=== PATIENT | female | born 1950 | race Caucasian/White ===

== ENCOUNTER 2020-03-15 18:54 | Observation (INO) ==
[2020-03-15 19:55] LABS: ABG Base Excess 0.7 MMOL/L (-2.5-2.5); ABG Oxygen Saturation 99.5 % (95-100); ABG PCO2 55.3 MM HG (35-48); ABG PH 7.313 (7.35-7.45); ABG TCO2 25.1 MMOL/L (23-27); Allen Test Positive
[2020-03-15 20:07] LABS: Basophils % 0.3 % (0.0-0.8); Eosinophils # 0.1 10*3/uL (0.0-0.87); Eosinophils % 1.8 % (0.00-10.9); Hematocrit 38.5 VOL% (35.7-47.0); Hemoglobin 12.3 GM/DL (12.0-16.0); Immature Granulocytes % 0.6 %; Immature Granulocytes Absolute 0.04 #; Lymphocytes # 0.9 10*3/uL (1.4-4.0); Lymphocytes % 12.9 % (21.3-54.2); Mean Corpuscular HGB Conc 31.9 GM/DL (32-36); Mean Corpuscular Volume 95.5 FL (87-102); Mean Platelet Volume 10.4 FL (9.6-12.0); Monocytes % 7.8 % (1.7-12.7); Neutrophils % 76.6 % (38.7-73.9); Platelet Count 150 T/CUMM (130-400); Red Blood Count 4.03 MC/CUMM (3.8-5.5); Red Cell Distribution Width 12.9 % (9.3-17.3); White Blood Count 7.1 T/CUMM (4-12)
[2020-03-15 20:27] LABS: PT Patient Result 10.7 SECS (9.8-11.9)
[2020-03-15 20:29] LABS: Albumin 3.7 G/DL (3.4-5.0); Bilirubin,Total 1.4 MG/DL (0.2-1.0); Calcium 8.6 MG/DL (8.5-10.1); Osmolality,Calculated 281.5 MOS/KG (273-304)
[2020-03-15 20:30] LABS: Barbiturates Screen,Urine Negative (Negative); Benzodiazepines Screen,Urine Positive (Negative); Cannabinoid Screen,Urine Negative (Negative); Opiate Screen,Urine Negative (Negative); Phencyclidine Screen,Urine Negative (Negative)
[2020-03-15] MEDS ORDERED: SODIUM CHLORIDE 0.9% 1,000 ML IV STA (21:03)
[2020-03-15 21:19] LABS: Apearance,Urine Slightly Hazy (Clear); Bacteria,Urine Occasional /HPF (Few); Bilirubin,Urine Negative (Negative); Blood, Urine Moderate mg/dL (Negative); Glucose,Urine (UA) Negative (Negative); Hyaline Casts,Urine 15 /LPF (0-3); Ketones,Urine 5 mg/dL (Negative); Mucus,Urine Occasional /LPF (Occasional); Nitrite,Urine Positive (Negative); Protein,Urine 30 MG/DL; RBC,Urine 1 /HPF (0-4); Squamous Epithelial Cell,Urine Occasional /HPF (0-10); Urine Color Yellow (Yellow); Urine Specific Gravity 1.012 (1.001-1.035); WBC,Urine 27 /HPF (0-6)
[2020-03-15] MEDS ORDERED: DOCUSATE SODIUM 100 MG CAPSULE PO PRN (21:52)
[2020-03-15] MEDS ORDERED: ONDANSETRON 4 MG/2 ML VIAL IV PRN (21:52)
[2020-03-15] MEDS ORDERED: ALUMINUM/MAGNES/SIMETH MAX STR 30 ML UDCUP PO PRN (21:52)
[2020-03-15] MEDS ORDERED: cefTRIAXone 1,000 MG in SODIUM CHLORIDE 0.9% 100 ML IV STA (21:54)
[2020-03-15] MEDS ORDERED: cefTRIAXone 2,000 MG in SYRINGE 1 EACH IV SCH (22:00)
[2020-03-15 22:18] LABS: Hepatitis B Core IgM Quant 0.09 Index; Hepatitis B Surface Ag Quant 0.22 Index; Hepatitis B Surface Ag Result Negative (Negative); Hepatitis C Virus Ab Quant 0.08 Index; Hepatitis C Virus Ab Result Negative (Negative)
[2020-03-15] MEDS ORDERED: SODIUM CHLORIDE 0.9% 100 ML IV ONE (22:20)
[2020-03-15] MEDS: SODIUM CHLORIDE 0.9% 1,000 ML IV SCH (22:38)
[2020-03-16 05:47] LABS: Basophils % 0.4 % (0.0-0.8); Eosinophils # 0.2 10*3/uL (0.0-0.87); Eosinophils % 3.8 % (0.00-10.9); Hematocrit 33.5 VOL% (35.7-47.0); Hemoglobin 10.8 GM/DL (12.0-16.0); Immature Granulocytes % 0.4 %; Immature Granulocytes Absolute 0.02 #; Lymphocytes # 1.1 10*3/uL (1.4-4.0); Lymphocytes % 23.8 % (21.3-54.2); Mean Corpuscular HGB Conc 32.2 GM/DL (32-36); Mean Corpuscular Volume 94.1 FL (87-102); Mean Platelet Volume 10.6 FL (9.6-12.0); Neutrophils % 62.6 % (38.7-73.9); Platelet Count 128 T/CUMM (130-400); Red Blood Count 3.56 MC/CUMM (3.8-5.5); Red Cell Distribution Width 12.9 % (9.3-17.3); White Blood Count 4.8 T/CUMM (4-12)
[2020-03-16 06:16] LABS: Albumin 2.7 G/DL (3.4-5.0); Bilirubin,Total 0.6 MG/DL (0.2-1.0); Calcium 8.4 MG/DL (8.5-10.1); Osmolality,Calculated 285.8 MOS/KG (273-304); Total Protein 5.7 G/DL (6.4-8.3)
[2020-03-16] MEDS: SODIUM CHLORIDE 0.9% 1,000 ML IV SCH (10:00)
[2020-03-16 11:07] LABS: Risk Ratio 4.03; VLDL CHOLESTEROL 32.2 MG/DL
[2020-03-16 12:05] VITALS: BP 142/76
== END 2020-03-16 14:12 | disposition home health service (06) ==
LOC: EDUNIT# → EDBD → N.EDINP 18:54 → N.ED 18:54 → N.EDINP 22:48 → N.5E 23:08
PROVIDERS: ADMIT Family Medicine; ATTEND Family Medicine

== ENCOUNTER 2020-03-27 20:07 | Inpatient (IN) ==
[2020-03-27] MEDS ORDERED: SODIUM CHLORIDE 0.9% 1,000 ML IV STA ×2 (20:56→22:30)
[2020-03-27 21:13] LABS: Basophils # 0.1 10*3/uL (0.0-0.2); Basophils % 0.2 % (0.0-0.8); Eosinophils % 0.1 % (0.00-10.9); Hematocrit 41.2 VOL% (35.7-47.0); Hemoglobin 13.1 GM/DL (12.0-16.0); Immature Granulocytes % 1.1 %; Immature Granulocytes Absolute 0.27 #; Lymphocytes % 3.9 % (21.3-54.2); Mean Corpuscular HGB Conc 31.8 GM/DL (32-36); Mean Corpuscular Volume 95.2 FL (87-102); Mean Platelet Volume 11.1 FL (9.6-12.0); Monocytes % 7.7 % (1.7-12.7); Platelet Count 225 T/CUMM (130-400); Red Blood Count 4.33 MC/CUMM (3.8-5.5); Red Cell Distribution Width 13.2 % (9.3-17.3); White Blood Count 25.1 T/CUMM (4-12)
[2020-03-27 21:33] LABS: Albumin 3.3 G/DL (3.4-5.0); Barbiturates Screen,Urine Negative (Negative); Benzodiazepines Screen,Urine Positive (Negative); Bilirubin,Total 0.7 MG/DL (0.2-1.0); Calcium 9.5 MG/DL (8.5-10.1); Cannabinoid Screen,Urine Negative (Negative); Opiate Screen,Urine Negative (Negative); Phencyclidine Screen,Urine Negative (Negative); Total Protein 7.2 G/DL (6.4-8.3)
[2020-03-27 21:36] LABS: Bilirubin,Urine Negative (Negative); Blood, Urine Small mg/dL (Negative); Glucose,Urine (UA) Negative (Negative); Ketones,Urine 5 mg/dL (Negative); Mucus,Urine Occasional /LPF (Occasional); Nitrite,Urine Negative (Negative); Protein,Urine 100 MG/DL; Squamous Epithelial Cell,Urine Occasional /HPF (0-10); Urine Appearance CLOUDY (Clear); Urine Color Amber (Yellow); Urine Specific Gravity 1.019 (1.001-1.035); WBC,Urine 2 /HPF (0-6)
[2020-03-27 21:38] LABS: Band Neutrophils 14 % (0-10); Lymphocytes 3 % (20-55); Platelet Estimate Normal; Segmented Neutrophils 78 % (50-85); Total Cells Counted 100
[2020-03-27] MEDS ORDERED: PIPERACILLIN/TAZOBACTAM 3,375 MG in SODIUM CHLORIDE 0.9% 100 ML IV STA (22:31)
[2020-03-27] MEDS ORDERED: VANCOMYCIN INJ 1,000 MG in SODIUM CHLORIDE 0.9% 250 ML IV STA (22:31)
[2020-03-28] MEDS ORDERED: LEVOFLOXACIN INJ 750 MG in PREMIX 1 EACH IV ONE (00:30)
[2020-03-28] MEDS ORDERED: ALBUTEROL 2.5 MG/3 ML NEB RESP TX PRN (00:33)
[2020-03-28] MEDS ORDERED: ACETAMINOPHEN 325 MG TABLET PO PRN (00:35)
[2020-03-28] MEDS ORDERED: DOCUSATE SODIUM 100 MG CAPSULE PO PRN (00:35)
[2020-03-28] MEDS ORDERED: ONDANSETRON 4 MG/2 ML VIAL IV PRN (00:35)
[2020-03-28] MEDS: ALBUTEROL/IPRATROPIUM 3 ML NEB RESP TX SCH ×4 (01:00→19:00)
[2020-03-28] MEDS: SODIUM CHLORIDE 0.9% 1,000 ML IV SCH ×3 (01:55→17:18)
[2020-03-28 02:33] LABS: Basophils % 0.2 % (0.0-0.8); Hematocrit 35.7 VOL% (35.7-47.0); Hemoglobin 11.2 GM/DL (12.0-16.0); Immature Granulocytes % 0.8 %; Immature Granulocytes Absolute 0.14 #; Lymphocytes # 0.8 10*3/uL (1.4-4.0); Lymphocytes % 4.4 % (21.3-54.2); Mean Corpuscular HGB Conc 31.4 GM/DL (32-36); Mean Corpuscular Volume 97.8 FL (87-102); Mean Platelet Volume 10.7 FL (9.6-12.0); Monocytes % 4.7 % (1.7-12.7); Neutrophils % 89.9 % (38.7-73.9); Platelet Count 152 T/CUMM (130-400); Red Blood Count 3.65 MC/CUMM (3.8-5.5); Red Cell Distribution Width 13.3 % (9.3-17.3); White Blood Count 18.4 T/CUMM (4-12)
[2020-03-28 03:24] LABS: Band Neutrophils 3 % (0-10); Lymphocytes 6 % (20-55); Platelet Estimate Normal; Segmented Neutrophils 87 % (50-85); Total Cells Counted 100
[2020-03-28 03:25] LABS: Hypochromasia Slight
[2020-03-28 05:55] LABS: Albumin 2.5 G/DL (3.4-5.0); Bilirubin,Total 1.2 MG/DL (0.2-1.0); Calcium 8.4 MG/DL (8.5-10.1); Osmolality,Calculated 290.4 MOS/KG (273-304); Total Protein 5.4 G/DL (6.4-8.3)
[2020-03-28] MEDS: PIPERACILLIN/TAZOBACTAM 3,375 MG in SODIUM CHLORIDE 0.9% 100 ML IV SCH ×2 (09:38→21:41)
[2020-03-28] MEDS: MIRTAZAPINE 30 MG TABLET PO SCH (21:41)
[2020-03-29] MEDS: ALBUTEROL/IPRATROPIUM 3 ML NEB RESP TX SCH ×4 (00:50→19:24)
[2020-03-29] MEDS ORDERED: SODIUM CHLORIDE 0.9% 250 ML IV ONE (05:40)
[2020-03-29 06:04] LABS: Basophils % 0.3 % (0.0-0.8); Eosinophils # 0.1 10*3/uL (0.0-0.87); Eosinophils % 0.4 % (0.00-10.9); Hemoglobin 10.5 GM/DL (12.0-16.0); Immature Granulocytes % 0.6 %; Immature Granulocytes Absolute 0.07 #; Lymphocytes # 0.6 10*3/uL (1.4-4.0); Lymphocytes % 5.4 % (21.3-54.2); Mean Corpuscular HGB Conc 31.8 GM/DL (32-36); Mean Corpuscular Volume 96.5 FL (87-102); Monocytes % 6.6 % (1.7-12.7); Neutrophils % 86.7 % (38.7-73.9); Platelet Count 144 T/CUMM (130-400); Red Blood Count 3.42 MC/CUMM (3.8-5.5); Red Cell Distribution Width 13.9 % (9.3-17.3); White Blood Count 11.7 T/CUMM (4-12)
[2020-03-29 06:30] LABS: Albumin 2.1 G/DL (3.4-5.0); Anisocytosis 1+; Band Neutrophils 42 % (0-10); Bilirubin,Total 1.4 MG/DL (0.2-1.0); Calcium 8.6 MG/DL (8.5-10.1); Eosinophils 1 % (0-10); Lymphocytes 6 % (20-55); Nucleated Red Blood Cells 1 (0-5); Osmolality,Calculated 286.3 MOS/KG (273-304); Platelet Estimate Adequate; Segmented Neutrophils 47 % (50-85); Smudge Cells Few; Total Cells Counted 100; Total Protein 5.2 G/DL (6.4-8.3)
[2020-03-29] MEDS ORDERED: MONTELUKAST 10 MG TABLET PO SCH (09:00)
[2020-03-29] MEDS: SERTRALINE 50 MG TABLET PO SCH (11:25)
[2020-03-29] MEDS: METOPROLOL SUCCINATE XL 50 MG TABLET PO SCH (11:26)
[2020-03-29] MEDS: PIPERACILLIN/TAZOBACTAM 3,375 MG in SODIUM CHLORIDE 0.9% 100 ML IV SCH ×2 (11:26→16:51)
[2020-03-29] MEDS: SODIUM CHLORIDE 0.9% 1,000 ML IV SCH ×3 (18:09→20:30)
[2020-03-29] MEDS: MIRTAZAPINE 30 MG TABLET PO SCH (20:31)
[2020-03-29] MEDS: amLODIPine 5 MG TABLET PO SCH (20:31)
[2020-03-30] MEDS: ALBUTEROL/IPRATROPIUM 3 ML NEB RESP TX SCH ×4 (00:14→19:15)
[2020-03-30] MEDS ORDERED: LEVOFLOXACIN INJ 500 MG in PREMIX 1 EACH IV SCH (01:00)
[2020-03-30] MEDS: PIPERACILLIN/TAZOBACTAM 3,375 MG in SODIUM CHLORIDE 0.9% 100 ML IV SCH ×2 (02:00→09:08)
[2020-03-30 06:51] LABS: Basophils # 0.1 10*3/uL (0.0-0.2); Basophils % 0.5 % (0.0-0.8); Eosinophils # 0.4 10*3/uL (0.0-0.87); Eosinophils % 3.2 % (0.00-10.9); Hematocrit 33.4 VOL% (35.7-47.0); Hemoglobin 10.9 GM/DL (12.0-16.0); Immature Granulocytes Absolute 0.13 #; Lymphocytes % 7.8 % (21.3-54.2); Mean Corpuscular HGB Conc 32.6 GM/DL (32-36); Mean Corpuscular Volume 93.3 FL (87-102); Mean Platelet Volume 10.9 FL (9.6-12.0); Monocytes % 5.3 % (1.7-12.7); Neutrophils % 82.2 % (38.7-73.9); Platelet Count 163 T/CUMM (130-400); Red Blood Count 3.58 MC/CUMM (3.8-5.5); Red Cell Distribution Width 13.6 % (9.3-17.3)
[2020-03-30 08:07] LABS: Calcium 8.4 MG/DL (8.5-10.1); Osmolality,Calculated 281.1 MOS/KG (273-304)
[2020-03-30] MEDS ORDERED: POTASSIUM CHLORIDE 20 MEQ TABLET PO ONE (08:12)
[2020-03-30] MEDS ORDERED: MAGNESIUM OXIDE 400 MG TABLET PO ONE (08:12)
[2020-03-30 08:51] LABS: Band Neutrophils 4 % (0-10); Lymphocytes 4 % (20-55); Ovalocytes Few; Platelet Estimate Adequate; Polychromasia Slight; Schistocytes Few; Segmented Neutrophils 92 % (50-85); Total Cells Counted 100
[2020-03-30] MEDS: SERTRALINE 50 MG TABLET PO SCH (09:08)
[2020-03-30] MEDS: METOPROLOL SUCCINATE XL 50 MG TABLET PO SCH (09:08)
[2020-03-30] MEDS: SODIUM CHLORIDE 0.9% 1,000 ML IV SCH (10:23)
[2020-03-30] MEDS: MIRTAZAPINE 30 MG TABLET PO SCH (20:43)
[2020-03-30] MEDS: amLODIPine 5 MG TABLET PO SCH (20:43)
[2020-03-30] MEDS: MONTELUKAST 10 MG TABLET PO SCH (20:44)
[2020-03-31] MEDS: ALBUTEROL/IPRATROPIUM 3 ML NEB RESP TX SCH ×4 (00:37→19:45)
[2020-03-31 06:03] LABS: Basophils # 0.1 10*3/uL (0.0-0.2); Basophils % 0.7 % (0.0-0.8); Eosinophils # 0.3 10*3/uL (0.0-0.87); Eosinophils % 3.7 % (0.00-10.9); Hematocrit 33.3 VOL% (35.7-47.0); Hemoglobin 10.6 GM/DL (12.0-16.0); Immature Granulocytes % 2.3 %; Lymphocytes # 1.1 10*3/uL (1.4-4.0); Lymphocytes % 12.2 % (21.3-54.2); Mean Corpuscular HGB Conc 31.8 GM/DL (32-36); Mean Corpuscular Volume 94.9 FL (87-102); Mean Platelet Volume 10.5 FL (9.6-12.0); Monocytes % 7.8 % (1.7-12.7); Neutrophils % 73.3 % (38.7-73.9); Platelet Count 173 T/CUMM (130-400); Red Blood Count 3.51 MC/CUMM (3.8-5.5); Red Cell Distribution Width 13.7 % (9.3-17.3); White Blood Count 8.6 T/CUMM (4-12)
[2020-03-31 06:34] LABS: Calcium 8.2 MG/DL (8.5-10.1); Osmolality,Calculated 286.6 MOS/KG (273-304)
[2020-03-31 06:37] LABS: Albumin 2.2 G/DL (3.4-5.0); Bilirubin,Direct 0.13 MG/DL (0.0-0.20); Bilirubin,Total 1.1 MG/DL (0.2-1.0); Total Protein 5.2 G/DL (6.4-8.3)
[2020-03-31] MEDS: SERTRALINE 50 MG TABLET PO SCH ×2 (08:21→08:23)
[2020-03-31] MEDS: METOPROLOL SUCCINATE XL 50 MG TABLET PO SCH (08:21)
[2020-03-31] MEDS: SODIUM CHLORIDE 0.9% 1,000 ML IV SCH ×2 (08:21→13:45)
[2020-03-31] MEDS ORDERED: POTASSIUM CHLORIDE 20 MEQ TABLET PO ONE (09:33)
[2020-03-31 11:25] LABS: Eosinophils 2 % (0-10); Lymphocytes 7 % (20-55); Metamyelocytes 1 %; Platelet Estimate Adequate; Polychromasia Slight; Segmented Neutrophils 86 % (50-85); Total Cells Counted 100
[2020-03-31] MEDS: amLODIPine 5 MG TABLET PO SCH (20:26)
[2020-03-31] MEDS: MIRTAZAPINE 30 MG TABLET PO SCH (20:26)
[2020-03-31] MEDS: MONTELUKAST 10 MG TABLET PO SCH (20:27)
[2020-04-01] MEDS: ALBUTEROL/IPRATROPIUM 3 ML NEB RESP TX SCH ×3 (00:55→13:54)
[2020-04-01 05:42] LABS: Calcium 8.2 MG/DL (8.5-10.1)
[2020-04-01] MEDS: METOPROLOL SUCCINATE XL 50 MG TABLET PO SCH (08:42)
[2020-04-01] MEDS: SERTRALINE 50 MG TABLET PO SCH (08:43)
[2020-04-01] MEDS ORDERED: LEVOFLOXACIN 500 MG TABLET PO SCH (09:00)
[2020-04-01] MEDS ORDERED: DILTIAZEM 30 MG TABLET PO SCH (12:00)
[2020-04-01 12:26] VITALS: BP 135/70
[2020-04-01] MEDS ORDERED: MAGNESIUM CHLORIDE 64 MG TABLET PO SCH (21:00)
== END 2020-04-01 15:21 | disposition home health service (06) | DRG 871 ==
LOC: N.ED 20:07 → SUATTDRO 23:48 → N.EDINP 23:48 → N.5E 03-28 01:15
PROVIDERS: ADMIT Internal Medicine; ATTEND Internal Medicine

== ENCOUNTER 2020-04-11 23:52 | Observation (INO) ==
[2020-04-12] MEDS ORDERED: SODIUM CHLORIDE 0.9% 2,000 ML IV STA (00:15)
[2020-04-12 01:00] LABS: Basophils % 0.2 % (0.0-0.8); Eosinophils # 0.2 10*3/uL (0.0-0.87); Hematocrit 30.3 VOL% (35.7-47.0); Hemoglobin 9.4 GM/DL (12.0-16.0); Immature Granulocytes % 0.4 %; Immature Granulocytes Absolute 0.04 #; Lymphocytes # 0.6 10*3/uL (1.4-4.0); Mean Corpuscular Volume 98.1 FL (87-102); Monocytes % 12.9 % (1.7-12.7); Neutrophils % 78.5 % (38.7-73.9); Platelet Count 232 T/CUMM (130-400); Red Blood Count 3.09 MC/CUMM (3.8-5.5); Red Cell Distribution Width 13.2 % (9.3-17.3); White Blood Count 9.2 T/CUMM (4-12)
[2020-04-12 01:20] LABS: INR 1.1; PT Patient Result 11.6 SECS (9.8-11.9); Partial Thromboplastin Time 30.2 SECS (23.9-33.8)
[2020-04-12 01:25] LABS: Amorphous Crystals,Urine Moderate /HPF (Few); Bilirubin,Urine Negative (Negative); Blood, Urine Negative (Negative); Glucose,Urine (UA) Negative (Negative); Hyaline Casts,Urine 1 /LPF (0-3); Ketones,Urine Negative (Negative); Mucus,Urine Occasional /LPF (Occasional); Nitrite,Urine Negative (Negative); Protein,Urine Negative; RBC,Urine 1 /HPF (0-4); Squamous Epithelial Cell,Urine Occasional /HPF (0-10); Urine Appearance Slightly Hazy (Clear); Urine Color Yellow (Yellow); Urine Specific Gravity 1.012 (1.001-1.035); WBC,Urine 1 /HPF (0-6)
[2020-04-12 01:29] LABS: Acetaminophen < 2.0 UG/ML (10-30); Alanine Aminotransferase 16 U/L (13-56); Albumin 2.2 G/DL (3.4-5.0); Alkaline Phosphatase 125 U/L (45-117); Aspartate Amino Transferase 8 U/L (0-37); Bilirubin,Total < 0.39 MG/DL (0.2-1.0); Blood Urea Nitrogen 32 MG/DL (7-18); Calcium 7.6 MG/DL (8.5-10.1); Estimated Glom Filtration Rate 29 ML/MIN; Glucose 216 MG/DL (74-106); Osmolality,Calculated 290.5 MOS/KG (273-304); Salicylate < 2.8 MG/DL (2.8-20); Thyroid Stimulating Hormone 0.747 uIU/ml (0.358-3.74)
[2020-04-12 01:30] LABS: Barbiturates Screen,Urine Negative (Negative); Benzodiazepines Screen,Urine Positive (Negative); Cannabinoid Screen,Urine Negative (Negative); Opiate Screen,Urine Negative (Negative); Phencyclidine Screen,Urine Negative (Negative)
[2020-04-12 02:03] LABS: Band Neutrophils 1 % (0-10); Lymphocytes 4 % (20-55); Platelet Estimate Normal; Segmented Neutrophils 79 % (50-85); Total Cells Counted 100
[2020-04-12 02:04] LABS: Polychromasia Slight; Stomatocytes Slight
[2020-04-12] MEDS ORDERED: ALUMINUM/MAGNES/SIMETH MAX STR 30 ML UDCUP PO PRN (06:08)
[2020-04-12] MEDS ORDERED: DOCUSATE SODIUM 100 MG CAPSULE PO PRN (06:08)
[2020-04-12] MEDS ORDERED: ALBUTEROL/IPRATROPIUM 3 ML NEB RESP TX PRN (06:08)
[2020-04-12] MEDS ORDERED: ACETAMINOPHEN 325 MG TABLET PO PRN (06:08)
[2020-04-12] MEDS ORDERED: ONDANSETRON 4 MG/2 ML VIAL IV PRN (06:08)
[2020-04-12] MEDS ORDERED: LEVOFLOXACIN INJ 750 MG in PREMIX 1 EACH IV SCH (06:30)
[2020-04-12] MEDS: SODIUM CHLORIDE 0.9% 1,000 ML IV SCH ×2 (09:24→21:04)
[2020-04-12 12:09] VITALS: BP 118/54
[2020-04-13 06:55] LABS: Basophils % 0.4 % (0.0-0.8); Eosinophils # 0.2 10*3/uL (0.0-0.87); Eosinophils % 2.3 % (0.00-10.9); Hematocrit 29.3 VOL% (35.7-47.0); Hemoglobin 9.1 GM/DL (12.0-16.0); Immature Granulocytes % 1.3 %; Lymphocytes # 1.1 10*3/uL (1.4-4.0); Lymphocytes % 14.1 % (21.3-54.2); Mean Corpuscular HGB Conc 31.1 GM/DL (32-36); Mean Corpuscular Volume 96.7 FL (87-102); Mean Platelet Volume 10.1 FL (9.6-12.0); Monocytes % 8.5 % (1.7-12.7); Neutrophils % 73.4 % (38.7-73.9); Platelet Count 228 T/CUMM (130-400); Red Blood Count 3.03 MC/CUMM (3.8-5.5); Red Cell Distribution Width 13.1 % (9.3-17.3); White Blood Count 7.7 T/CUMM (4-12)
[2020-04-13 07:14] LABS: Albumin 1.8 G/DL (3.4-5.0); Bilirubin,Total 0.5 MG/DL (0.2-1.0); Osmolality,Calculated 285.8 MOS/KG (273-304); Total Protein 4.9 G/DL (6.4-8.3)
[2020-04-13 07:50] LABS: Band Neutrophils 29 % (0-10); Eosinophils 2 % (0-10); Lymphocytes 15 % (20-55); Metamyelocytes 1 %; Nucleated Red Blood Cells 1 (0-5); Segmented Neutrophils 45 % (50-85); Total Cells Counted 100
[2020-04-13 07:51] LABS: Anisocytosis Slight; Basophilic Stippling Slight; Platelet Estimate Normal
== END 2020-04-13 14:25 | disposition home health service (06) ==
LOC: EDBD → EDUNIT# → N.EDINP 23:52 → N.ED 23:52 → N.4E 04-12 04:53
PROVIDERS: ADMIT Internal Medicine; ATTEND Internal Medicine

== ENCOUNTER 2020-05-16 04:41 | Observation (INO) ==
[2020-05-16] MEDS ORDERED: SODIUM CHLORIDE 0.9% 1,000 ML IV STA ×2 (04:53→07:03)
[2020-05-16 05:39] LABS: ABG Base Excess -0.1 MMOL/L (-2.5-2.5); ABG HCO3 24.3 MMOL/L (20-26); ABG Oxygen Saturation 95.2 % (95-100); ABG PCO2 47.1 MM HG (35-48); ABG PH 7.348 (7.35-7.45); ABG PO2 81.4 MM HG (80-95); ABG TCO2 23.5 MMOL/L (23-27); Allen Test Positive; Pt O2 Delivery Device Room Air
[2020-05-16 06:09] LABS: Albumin 3.2 G/DL (3.4-5.0); Bilirubin,Total 0.4 MG/DL (0.2-1.0); Calcium 9.2 MG/DL (8.5-10.1); Osmolality,Calculated 292.3 MOS/KG (273-304); Total Protein 6.8 G/DL (6.4-8.3)
[2020-05-16 06:22] LABS: Basophils % 0.2 % (0.0-0.8); Eosinophils % 0.1 % (0.00-10.9); Hematocrit 33.6 VOL% (35.7-47.0); Hemoglobin 10.6 GM/DL (12.0-16.0); Immature Granulocytes % 0.8 %; Immature Granulocytes Absolute 0.09 #; Lymphocytes % 9.3 % (21.3-54.2); Mean Corpuscular HGB Conc 31.5 GM/DL (32-36); Mean Corpuscular Volume 97.1 FL (87-102); Mean Platelet Volume 10.6 FL (9.6-12.0); Monocytes % 8.4 % (1.7-12.7); Neutrophils % 81.2 % (38.7-73.9); Platelet Count 183 T/CUMM (130-400); Red Blood Count 3.46 MC/CUMM (3.8-5.5); Red Cell Distribution Width 14.3 % (9.3-17.3); White Blood Count 11.1 T/CUMM (4-12)
[2020-05-16 06:32] LABS: Amorphous Crystals,Urine Occasional /HPF (Few); Bacteria,Urine Many /HPF (Few); Bilirubin,Urine Negative (Negative); Blood, Urine Small mg/dL (Negative); Glucose,Urine (UA) Negative (Negative); Hyaline Casts,Urine 33 /LPF (0-3); Ketones,Urine Negative (Negative); Nitrite,Urine Negative (Negative); Protein,Urine 30 MG/DL; Urine Appearance Slightly Hazy (Clear); Urine Color Amber (Yellow); Urine Specific Gravity 1.018 (1.001-1.035)
[2020-05-16 06:36] LABS: PT Patient Result 11.2 SECS (9.8-11.9)
[2020-05-16 06:40] LABS: Barbiturates Screen,Urine Negative (Negative); Benzodiazepines Screen,Urine Positive (Negative); Cannabinoid Screen,Urine Negative (Negative); Opiate Screen,Urine Negative (Negative); Phencyclidine Screen,Urine Negative (Negative)
[2020-05-16 06:59] LABS: Anisocytosis 1+; Atypical Lymphocytes 1+; Band Neutrophils 6 % (0-10); Lymphocytes 10 % (20-55); Macrocytosis 1+; Nucleated Red Blood Cells 1 (0-5); Platelet Estimate Normal; Segmented Neutrophils 77 % (50-85); Total Cells Counted 100
[2020-05-16] MEDS ORDERED: DEXTROSE 50% 25 GM/50 ML VIAL IV PRN (07:21)
[2020-05-16] MEDS ORDERED: GLUCAGON 1 MG VIAL IM PRN (07:21)
[2020-05-16] MEDS ORDERED: ACETAMINOPHEN 325 MG TABLET PO PRN (07:21)
[2020-05-16 08:13] LABS: Risk Ratio 3.12; Thyroid Stimulating Hormone 1.61 uIU/ml (0.358-3.74); VLDL CHOLESTEROL 28.6 MG/DL
[2020-05-16] MEDS: INSULIN REGULAR 100 UNIT/ML SUBCUT SCH ×4 (09:06→22:13)
[2020-05-16] MEDS: DEXTROSE 5% NACL 0.45% 1,000 ML IV SCH ×2 (09:41→21:50)
[2020-05-16] MEDS: PANTOPRAZOLE 40 MG TABLET PO SCH (09:41)
[2020-05-16] MEDS ORDERED: ENOXAPARIN 30 MG/0.3 ML SYRINGE SUBCUT SCH (21:00)
[2020-05-17 06:36] LABS: Basophils % 0.6 % (0.0-0.8); Eosinophils # 0.2 10*3/uL (0.0-0.87); Eosinophils % 3.5 % (0.00-10.9); Hematocrit 29.8 VOL% (35.7-47.0); Hemoglobin 9.4 GM/DL (12.0-16.0); Immature Granulocytes % 0.4 %; Immature Granulocytes Absolute 0.02 #; Lymphocytes # 1.3 10*3/uL (1.4-4.0); Lymphocytes % 25.5 % (21.3-54.2); Mean Corpuscular HGB Conc 31.5 GM/DL (32-36); Mean Corpuscular Volume 96.8 FL (87-102); Mean Platelet Volume 10.8 FL (9.6-12.0); Platelet Count 142 T/CUMM (130-400); Red Blood Count 3.08 MC/CUMM (3.8-5.5); Red Cell Distribution Width 14.1 % (9.3-17.3); White Blood Count 5.1 T/CUMM (4-12)
[2020-05-17 06:56] LABS: Osmolality,Calculated 289.7 MOS/KG (273-304)
[2020-05-17] MEDS: INSULIN REGULAR 100 UNIT/ML SUBCUT SCH ×2 (08:17→12:02)
[2020-05-17] MEDS ORDERED: ATORVASTATIN 10 MG TABLET PO SCH (09:00)
[2020-05-17] MEDS: PANTOPRAZOLE 40 MG TABLET PO SCH (09:28)
[2020-05-17 12:09] VITALS: BP 124/63
== END 2020-05-17 16:00 | disposition home or self-care (01) ==
LOC: EDBD → EDUNIT# → N.EDINP 04:41 → N.ED 04:41 → N.EDINP 09:21 → N.3E 09:36
PROVIDERS: ADMIT Emergency Medicine; ATTEND Emergency Medicine

== ENCOUNTER 2020-12-02 05:47 | Inpatient (IN) ==
[2020-12-02] MEDS ORDERED: LACTATED RINGERS 1,000 ML IV SCH (06:00)
[2020-12-02] MEDS ORDERED: VANCOMYCIN INJ 1,000 MG in SODIUM CHLORIDE 0.9% 250 ML IV ONE (06:00)
[2020-12-02] MEDS ORDERED: BACITRACIN OINT 0.9 GM PACK TOP ONE ×2 (06:43→08:56)
[2020-12-02] MEDS ORDERED: fentaNYL 100 MCG/2 ML VIAL ONE ×2 (06:57→10:13)
[2020-12-02] MEDS ORDERED: BUPIVACAINE SPINAL 0.75% 2 ML AMP SPINAL ONE ×2 (06:58→08:56)
[2020-12-02] MEDS ORDERED: KETAMINE 500 MG/10 ML VIAL ONE ×2 (06:58→08:56)
[2020-12-02] MEDS ORDERED: MIDAZOLAM 2 MG/2 ML VIAL ONE (06:58)
[2020-12-02] MEDS ORDERED: BUPIVACAINE 0.5% 50 ML VIAL ONE (07:04)
[2020-12-02] MEDS ORDERED: DEXAMETHASONE 4 MG/1 ML VIAL ONE ×2 (07:04→10:14)
[2020-12-02] MEDS ORDERED: FAMOTIDINE 20 MG TABLET PO ONE (07:42)
[2020-12-02] MEDS ORDERED: DIAZEPAM 5 MG TABLET PO ONE (07:42)
[2020-12-02] MEDS ORDERED: ACETAMINOPHEN 500 MG TABLET PO ONE (07:42)
[2020-12-02] MEDS ORDERED: GABAPENTIN 400 MG CAPSULE PO ONE (07:43)
[2020-12-02] MEDS ORDERED: SCOPOLAMINE 1.5 MG PATCH TRANSDERM ONE (07:47)
[2020-12-02] MEDS ORDERED: DEXMEDETOMIDINE 200 MCG/2 ML VIAL ONE (08:57)
[2020-12-02] MEDS ORDERED: ROPIVACAINE 0.5% 30 ML VIAL ONE (08:59)
[2020-12-02] MEDS ORDERED: LIDOCAINE 1% 5 ML VIAL ONE (09:04)
[2020-12-02] MEDS ORDERED: ONDANSETRON 4 MG/2 ML VIAL IV PRN (09:49)
[2020-12-02] MEDS ORDERED: SUCCINYLCHOLINE 200 MG/10 ML VIAL ONE (09:49)
[2020-12-02] MEDS ORDERED: MAGNESIUM HYDROXIDE SUSP 30 ML UDCUP PO PRN (09:49)
[2020-12-02] MEDS ORDERED: oxyCODONE/ACETAMINOPHEN 5-325 MG TABLET PO PRN (09:49)
[2020-12-02] MEDS ORDERED: propofoL 200 MG/20 ML VIAL IV ONE (09:49)
[2020-12-02] MEDS ORDERED: MORPHINE 4 MG/1 ML VIAL IV PRN ×2 (09:49)
[2020-12-02] MEDS ORDERED: diphenhydrAMINE CAP 25 MG CAPSULE PO PRN (09:49)
[2020-12-02] MEDS ORDERED: ONDANSETRON 4 MG/2 ML VIAL ONE (10:14)
[2020-12-02] MEDS: LACTATED RINGERS 1,000 ML IV SCH ×2 (10:16→19:22)
[2020-12-02] MEDS ORDERED: TRANEXAMIC ACID 1,000 MG/10 ML VIAL ONE (10:16)
[2020-12-02] MEDS ORDERED: LACTATED RINGERS 1,000 ML IV ONE (10:22)
[2020-12-02] MEDS ORDERED: GLYCOPYRROLATE 0.4 MG/2 ML VIAL ONE (10:36)
[2020-12-02] MEDS ORDERED: NEOSTIGMINE 10 MG/10 ML VIAL ONE (10:36)
[2020-12-02] MEDS ORDERED: KETOROLAC 30 MG/1 ML VIAL ONE (11:25)
[2020-12-02] MEDS: KETOROLAC 15 MG/1 ML VIAL IV SCH ×3 (11:27→22:50)
[2020-12-02] MEDS ORDERED: ROCURONIUM 50 MG/5 ML VIAL IV ONE (12:33)
[2020-12-02] MEDS ORDERED: SEVOFLURANE 1 UNIT/15 MINUTE INH ONE (12:33)
[2020-12-02] MEDS ORDERED: NALOXONE 0.4 MG/ML VIAL ONE (14:52)
[2020-12-02] MEDS ORDERED: flumazeniL 0.5 MG/5 ML VIAL IV ONE (15:28)
[2020-12-02] MEDS ORDERED: ALBUMIN 5% 12.5 GM/250 ML VIAL IV ONE (18:30)
[2020-12-02 18:43] LABS: Allen Test Positive
[2020-12-02 18:44] LABS: ABG Base Excess -0.1 MMOL/L (-2.5-2.5); ABG HCO3 24.3 MMOL/L (20-26); ABG Oxygen Saturation 96.2 % (95-100); ABG PCO2 45.1 MM HG (35-48); ABG PH 7.361 (7.35-7.45); ABG PO2 85.6 MM HG (80-95); ABG TCO2 23.4 MMOL/L (23-27)
[2020-12-02] MEDS ORDERED: SODIUM CHLORIDE 0.9% 500 ML IV ONE (18:47)
[2020-12-02] MEDS ORDERED: DOPamine 800 MG/250 ML PREMIX IV PRN (18:47)
[2020-12-02 18:57] LABS: Basophils % 0.3 % (0.0-0.8); Hematocrit 31.2 VOL% (35.7-47.0); Hemoglobin 9.7 GM/DL (12.0-16.0); Immature Granulocytes % 0.8 %; Immature Granulocytes Absolute 0.06 #; Lymphocytes # 0.6 10*3/uL (1.4-4.0); Lymphocytes % 7.3 % (21.3-54.2); Mean Corpuscular HGB Conc 31.1 GM/DL (32-36); Mean Corpuscular Volume 99.4 FL (87-102); Monocytes % 5.4 % (1.7-12.7); Neutrophils % 86.2 % (38.7-73.9); Platelet Count 125 T/CUMM (130-400); Red Blood Count 3.14 MC/CUMM (3.8-5.5); Red Cell Distribution Width 13.1 % (9.3-17.3); White Blood Count 7.9 T/CUMM (4-12)
[2020-12-02 19:17] LABS: Albumin 2.9 G/DL (3.4-5.0); Bilirubin,Total 0.4 MG/DL (0.2-1.0); Calcium 8.1 MG/DL (8.5-10.1); Potassium 4.3 MMOL/L (3.5-5.1); Total Protein 5.5 G/DL (6.4-8.2)
[2020-12-02] MEDS: MIRTAZAPINE 15 MG TABLET PO SCH (20:36)
[2020-12-02] MEDS: DICYCLOMINE 20 MG TABLET PO SCH (21:23)
[2020-12-02] MEDS: DOCUSATE SODIUM 100 MG CAPSULE PO SCH (21:23)
[2020-12-02] MEDS: CIPROFLOXACIN 500 MG TABLET PO SCH (21:23)
[2020-12-02] MEDS: BACLOFEN 20 MG TABLET PO SCH (21:23)
[2020-12-02] MEDS: FLUTICASONE 50 MCG NASAL SPRAY 16 GM BOTTLE BOTH NARES SCH (21:23)
[2020-12-02] MEDS: amLODIPine 5 MG TABLET PO SCH (21:24)
[2020-12-03] MEDS: KETOROLAC 15 MG/1 ML VIAL IV SCH ×2 (04:32→06:49)
[2020-12-03] MEDS: LACTATED RINGERS 1,000 ML IV SCH ×2 (04:37→06:00)
[2020-12-03 05:54] LABS: Basophils % 0.3 % (0.0-0.8); Hematocrit 29.8 VOL% (35.7-47.0); Hemoglobin 9.4 GM/DL (12.0-16.0); Immature Granulocytes % 0.4 %; Immature Granulocytes Absolute 0.03 #; Lymphocytes # 0.8 10*3/uL (1.4-4.0); Lymphocytes % 10.3 % (21.3-54.2); Mean Corpuscular HGB Conc 31.5 GM/DL (32-36); Mean Corpuscular Volume 98.3 FL (87-102); Mean Platelet Volume 11.8 FL (9.6-12.0); Monocytes % 8.1 % (1.7-12.7); Neutrophils % 80.9 % (38.7-73.9); Platelet Count 115 T/CUMM (130-400); Red Blood Count 3.03 MC/CUMM (3.8-5.5); Red Cell Distribution Width 12.9 % (9.3-17.3); White Blood Count 7.8 T/CUMM (4-12)
[2020-12-03 06:32] LABS: Calcium 8.2 MG/DL (8.5-10.1); Osmolality,Calculated 290.6 MOS/KG (273-304); Potassium 4.1 MMOL/L (3.5-5.1)
[2020-12-03] MEDS: PANTOPRAZOLE 40 MG TABLET PO SCH (08:29)
[2020-12-03] MEDS: BACLOFEN 20 MG TABLET PO SCH ×2 (08:29→20:35)
[2020-12-03] MEDS: CIPROFLOXACIN 500 MG TABLET PO SCH ×2 (08:29→20:35)
[2020-12-03] MEDS: POTASSIUM CHLORIDE 10 MEQ TABLET PO SCH (08:30)
[2020-12-03] MEDS: MONTELUKAST 10 MG TABLET PO SCH (08:30)
[2020-12-03] MEDS: METOPROLOL SUCCINATE XL 50 MG TABLET PO SCH (08:30)
[2020-12-03] MEDS: lisinopriL 10 MG TABLET PO SCH (08:30)
[2020-12-03] MEDS: APIXABAN 2.5 MG TABLET PO SCH ×2 (08:30→20:35)
[2020-12-03] MEDS: DOCUSATE SODIUM 100 MG CAPSULE PO SCH ×2 (08:30→20:35)
[2020-12-03] MEDS: DICYCLOMINE 20 MG TABLET PO SCH ×2 (08:30→20:35)
[2020-12-03] MEDS: TOLTERODINE LA 2 MG CAPSULE PO SCH (08:30)
[2020-12-03] MEDS: oxyCODONE/ACETAMINOPHEN 5-325 MG TABLET PO PRN ×3 (12:10→21:44)
[2020-12-03 16:00] VITALS: BP 131/80
[2020-12-03] MEDS: MIRTAZAPINE 15 MG TABLET PO SCH (20:35)
[2020-12-03] MEDS: amLODIPine 5 MG TABLET PO SCH (20:35)
[2020-12-03] MEDS: FLUTICASONE 50 MCG NASAL SPRAY 16 GM BOTTLE BOTH NARES SCH (20:39)
[2020-12-03] MEDS ORDERED: ATORVASTATIN 10 MG TABLET PO SCH (21:00)
[2020-12-04] MEDS: oxyCODONE/ACETAMINOPHEN 5-325 MG TABLET PO PRN ×2 (00:26→10:04)
[2020-12-04 05:38] LABS: Basophils % 0.3 % (0.0-0.8); Eosinophils # 0.1 10*3/uL (0.0-0.87); Eosinophils % 1.3 % (0.00-10.9); Hematocrit 32.9 VOL% (35.7-47.0); Hemoglobin 10.2 GM/DL (12.0-16.0); Immature Granulocytes % 1.3 %; Immature Granulocytes Absolute 0.12 #; Lymphocytes # 0.7 10*3/uL (1.4-4.0); Lymphocytes % 7.8 % (21.3-54.2); Mean Corpuscular Volume 97.6 FL (87-102); Mean Platelet Volume 11.9 FL (9.6-12.0); Monocytes % 7.8 % (1.7-12.7); Neutrophils % 81.5 % (38.7-73.9); Platelet Count 108 T/CUMM (130-400); Red Blood Count 3.37 MC/CUMM (3.8-5.5); Red Cell Distribution Width 13.2 % (9.3-17.3); White Blood Count 9.1 T/CUMM (4-12)
[2020-12-04] MEDS: DICYCLOMINE 20 MG TABLET PO SCH (08:05)
[2020-12-04] MEDS: CIPROFLOXACIN 500 MG TABLET PO SCH (08:05)
[2020-12-04] MEDS: PANTOPRAZOLE 40 MG TABLET PO SCH (08:05)
[2020-12-04] MEDS: MONTELUKAST 10 MG TABLET PO SCH ×2 (08:05→10:05)
[2020-12-04] MEDS: METOPROLOL SUCCINATE XL 50 MG TABLET PO SCH (08:06)
[2020-12-04] MEDS: POTASSIUM CHLORIDE 10 MEQ TABLET PO SCH (08:06)
[2020-12-04] MEDS: lisinopriL 10 MG TABLET PO SCH (08:06)
[2020-12-04] MEDS: APIXABAN 2.5 MG TABLET PO SCH (08:06)
[2020-12-04] MEDS: BACLOFEN 20 MG TABLET PO SCH (08:07)
[2020-12-04] MEDS: DOCUSATE SODIUM 100 MG CAPSULE PO SCH (08:07)
[2020-12-04] MEDS: FLUTICASONE 50 MCG NASAL SPRAY 16 GM BOTTLE BOTH NARES SCH (08:10)
[2020-12-04] MEDS: TOLTERODINE LA 2 MG CAPSULE PO SCH (10:05)
== END 2020-12-04 14:20 | disposition home health service (06) | DRG 470 ==
LOC: N.OR 05:47 → N.SDSINP 05:49 → N.ICU 17:36
PROVIDERS: ADMIT Orthopaedic Surgery; ATTEND Orthopaedic Surgery